=== PATIENT | female | born 1950 | race Caucasian/White ===

== ENCOUNTER → 2025-02-16 10:06 | Outpatient (BNVA) | payer MEDICARE, SELFPAY | PROVIDERS: Visit Provider Internal Medicine | DX: E03.9 Hypothyroidism, unspecified (principal) | CPT/HCPCS: 36415; 84439; 84443; 86003; 86008 ==

== ENCOUNTER → 2025-04-20 10:52 | Outpatient (BNVA) | payer MEDICARE, SELFPAY | PROVIDERS: PCP Student in an Organized Health Care Education/Training Program; Visit Provider Internal Medicine | DX: E03.9 Hypothyroidism, unspecified (principal); Z91.014 Allergy to mammalian meats; M54.9 Dorsalgia, unspecified | CPT/HCPCS: 36415; 84439; 84443; 99214 ==